=== PATIENT | female | born 1950 | race Caucasian/White ===

== ENCOUNTER 2017-01-27 09:47 | Emergency (ER) | payer MEDICARE, OTHER ==
[2017-01-27] MEDS ORDERED: Sodium Chloride 0.9% 1,000 ML IV SCH (10:00)
[2017-01-27 10:39] LABS: CHLORIDE,CL 104 mmol/L (98-107); SODIUM,NA 140 mmol/L (136-145)
--- NOTE | 2017-01-27 10:43 | EDM.PDOC ---
ED HPI GENERAL MEDICAL PROBLEM - General Chief Complaint: Neuro Symptoms/Deficits Stated Complaint: possible stroke/TIA Time Seen by Provider: 01/27/17 09:49 Source of Information: Reports: Patient, Family History Limitations: Reports: No Limitations - History of Present Illness INITIAL COMMENTS - FREE TEXT/NARRATIVE: Patient brought in via EMS with complaints of left sided weakness and dizziness. She also has nausea. Last known well time is 914. She has a history of migraine headaches, TIA with hospitalization, near syncope episodes. She denies any medications. Was at work when this happened. Denies chest pain, sob, headache, no abdominal pain, no urinary or bowel complaints. Does have urinary incontinence. Left sided weakness to both upper and lower extremities. Onset: Today, Sudden Location: Reports: Upper Extremity, Left, Lower Extremity, Left Severity: Mild Improves with: Reports: None Worsens with: Reports: None Associated Symptoms: Reports: Weakness (left side) - Related Data Allergies Allergy/AdvReac Type Severity Reaction Status Date / Time prochlorperazine Allergy Severe Cannot Verified 01/27/17 10:17 [From Compazine] Remember ciprofloxacin [From Cipro] Allergy Cannot Verified 02/12/16 04:26 Remember butorphanol [From Stadol] AdvReac Cannot Verified 01/27/17 10:17 Remember dipyridamole [From Aggrenox] AdvReac Cannot Verified 01/27/17 10:17 Remember Past Medical History Neurological History: Reports: Migraines ED ROS GENERAL - Review of Systems Review Of Systems: See Below Constitutional: Reports: Weakness HEENT: Reports: No Symptoms Respiratory: Reports: No Symptoms Cardiovascular: Reports: No Symptoms Endocrine: Reports: No Symptoms GI/Abdominal: Reports: No Symptoms, Nausea : Reports: No Symptoms Musculoskeletal: Reports: No Symptoms Skin: Reports: No Symptoms Neurological: Reports: Dizziness, Weakness (left sided arm/leg) Psychiatric: Reports: No Symptoms Hematologic/Lymphatic: Reports: No Symptoms Immunologic: Reports: No Symptoms ED EXAM, NEURO - Physical Exam Exam: See Below Exam Limited By: No Limitations General Appearance: Alert, WD/WN, No Apparent Distress Eye Exam: Bilateral Eye: EOMI, PERRL Ears: Normal TMs Throat/Mouth: Normal Inspection, Normal Oropharynx Head Exam: Atraumatic, Normocephalic Neck: Normal Inspection, Supple, Non-Tender Respiratory/Chest: No Respiratory Distress, Lungs Clear, Normal Breath Sounds, No Accessory Muscle Use, Chest Non-Tender Cardiovascular: Normal Peripheral Pulses, Regular Rate, Rhythm, No Edema GI/Abdominal: Normal Bowel Sounds, Soft, Non-Tender, No Organomegaly, No Distention Neurological: Alert, Normal Mood/Affect, Oriented x 3, Abnormal Finger to Nose ( finger to nose and heel to grant normal but left side is slower than right, reduced sensation to left side on pin prick), Abnormal Sensation, Abnormal Light Touch, Abnormal Pin Prick. No: Normal Dorsiflexion, Normal Plantar Flexion (dorsiflexion and plantar flexion weak to left side) Back Exam: Normal Inspection Extremities: Normal Inspection, Normal Range of Motion, Normal Capillary Refill Psychiatric: Normal Affect, Normal Mood Skin Exam: Warm, Dry, Intact, Normal Color Course - Orders/Labs/Meds Orders: Active Orders 24 hr Category Date Time Status EKG 12 Lead [EKG Documentation Completion] [RC] ROUTINE Care 01/27/17 09:53 Active Head wo Cont [CT] Stat Exams 01/27/17 09:51 Taken Sodium Chloride 0.9% [Normal Saline] 1,000 ml Med 01/27/17 10:00 Active IV ASDIRECTED Medication Orders Sodium Chloride (Normal Saline) 1,000 mls @ 100 mls/hr IV ASDIRECTED CESAR Labs: Laboratory Tests 01/27/17 01/27/17 01/27/17 Range/Units 10:03 10:03 10:03 WBC 6.1 (4.0-10.0) x10^3/uL RBC 4.17 (4.00-5.50) x10^6/uL Hgb 12.2 (12.0-16.0) g/dL Hct 36.7 (33.0-47.0) % MCV 88.0 (78.0-93.0) fL MCH 29.3 (26.0-32.0) pg MCHC 33.2 (32.0-36.0) g/dL RDW Coeff of Ibis 14.5 (10.0-15.0) % Plt Count 236 (130-400) x10^3/uL Neut % (Auto) 50.5 (50.0-80.0) % Lymph % (Auto) 35.1 (25.0-50.0) % [place] % (Auto) 11.3 H (2.0-11.0) % Eos % (Auto) 2.8 (0.0-4.0) % Baso % (Auto) 0.3 (0.2-1.2) % PT 9.7 L (9.8-11.8) SEC INR 0.9 L (2.0-3.5) Sodium 140 (136-145) mmol/L Potassium 3.9 (3.5-5.1) mmol/L Chloride 104 (98-107) mmol/L Carbon Dioxide 26 (21-32) mmol/L BUN 15 (7-18) mg/dL Creatinine 0.9 (0.55-1.02) mg/dL Est Cr Clr Drug Dosing TNP Estimated GFR (MDRD) > 60 Glucose 95 (74-106) mg/dL Calcium 8.8 (8.5-10.1) mg/dL Corrected Calcium 9.12 (8.5-10.1) mg/dL Total Bilirubin 0.8 (0.2-1.0) mg/dL AST 19 (15-37) U/L ALT 20 (14-59) U/L Alkaline Phosphatase 68 (46-116) U/L Creatine Kinase 122 (26-192) U/L Creatine Kinase Index 1.8 (0.0-4.0) % CK-MB (CK-2) 2.2 (0.0-3.6) ng/mL POC Troponin I (0.00-0.08) ng/mL Total Protein 7.0 (6.4-8.2) g/dL Albumin 3.6 (3.4-5.0) g/dL Globulin 3.4 Albumin/Globulin Ratio 1.06 // Range/Units 10:06 WBC (4.0-10.0) x10^3/uL RBC (4.00-5.50) x10^6/uL Hgb (12.0-16.0) g/dL Hct (33.0-47.0) % MCV (78.0-93.0) fL MCH (26.0-32.0) pg MCHC (32.0-36.0) g/dL RDW Coeff of Ibis (10.0-15.0) % Plt Count (130-400) x10^3/uL Neut % (Auto) (50.0-80.0) % Lymph % (Auto) (25.0-50.0) % [place] % (Auto) (2.0-11.0) % Eos % (Auto) (0.0-4.0) % Baso % (Auto) (0.2-1.2) % PT (9.8-11.8) SEC INR (2.0-3.5) Sodium (136-145) mmol/L Potassium (3.5-5.1) mmol/L Chloride (98-107) mmol/L Carbon Dioxide (21-32) mmol/L BUN (7-18) mg/dL Creatinine (0.55-1.02) mg/dL Est Cr Clr Drug Dosing Estimated GFR (MDRD) Glucose (74-106) mg/dL Calcium (8.5-10.1) mg/dL Corrected Calcium (8.5-10.1) mg/dL Total Bilirubin (0.2-1.0) mg/dL AST (15-37) U/L ALT (14-59) U/L Alkaline Phosphatase (46-116) U/L Creatine Kinase (26-192) U/L Creatine Kinase Index (0.0-4.0) % CK-MB (CK-2) (0.0-3.6) ng/mL POC Troponin I 0.00 (0.00-0.08) ng/mL Total Protein (6.4-8.2) g/dL Albumin (3.4-5.0) g/dL Globulin Albumin/Globulin Ratio Meds: Medications Generic Name Dose Route Start Last Admin Trade Name Freq PRN Reason Stop Dose Admin Sodium Chloride 1,000 mls @ 100 mls/hr 01/27/17 10:00 Normal Saline IV ASDIRECTED CESAR Discontinued Medications Generic Name Dose Route Start Last Admin Trade Name Freq PRN Reason Stop Dose Admin Alteplase, Recombinant 7.3 mg 01/27/17 11:11 Activase IVPUSH 01/27/17 11:12 .BOLUS ONE Alteplase, Recombinant 65.7 mg 01/27/17 11:11 Activase IV 01/27/17 11:12 .INFUSION ONE Departure - Departure Time of Disposition: 11:34 Disposition: DC/Tfer to Acute Hospital 02 Condition: Good Clinical Impression: Cerebrovascular accident (CVA) - Discharge Information Forms: ED Department Discharge, Interfacility Transfer [facility] ED Communication - Discussed Case With (1) Discussed Case With (1): Admitting Provider (Dr. Preciado, neurologist at [facility] did accept patient for admission, with recommendation to administer tPa.) Person/s Notified (1): zaire - Problem List & Annotations (1) Cerebrovascular accident (CVA) SNOMED Code(s): 321590098 Code(s): I63.9 - CEREBRAL INFARCTION, UNSPECIFIED Status: Acute Priority : Medium Current Visit: Yes Qualifiers: CVA mechanism: unspecified Qualified Code(s): I63.9 - Cerebral infarction, unspecified - Problem List Review Problem List Initiated/Reviewed/Updated: Yes - My Orders Last 24 Hours: My Active Orders 01/27/17 09:51 Head wo Cont [CT] Stat 01/27/17 09:53 EKG 12 Lead [EKG Documentation Completion] [RC] ROUTINE 01/27/17 10:00 Sodium Chloride 0.9% [Normal Saline] 1,000 ml IV ASDIRECTED - Assessment/Plan Last 24 Hours: My Active Orders 01/27/17 09:51 Head wo Cont [CT] Stat 01/27/17 09:53 EKG 12 Lead [EKG Documentation Completion] [RC] ROUTINE 01/27/17 10:00 Sodium Chloride 0.9% [Normal Saline] 1,000 ml IV ASDIRECTED Assessment:: right sided TIA Plan: Transfer to [facility]. Consultation with Dr. Preciado and decision made to administer tPa in route.
== END 2017-01-27 11:45 | disposition short-term general hospital (02) ==
LOC: VM.ED 09:47
DX: I63.9 Cerebral infarction, unspecified (principal); Z88.1 Allergy status to other antibiotic agents; Z88.8 Allergy status to other drugs, medicaments and biological substances
CPT/HCPCS: 36415; 70450; 80053; 82550; 82553; 84484; 85025; 85610; 96361; 96374; 99291; 99292; J2997; 99285-GF; J7030

== ENCOUNTER 2017-06-22 05:45 | Emergency (ER) | payer MEDICARE, OTHER ==
[2017-06-22] MEDS ORDERED: Sodium Chloride 0.9% 10 ML Syringe FLUSH PRN (06:11)
[2017-06-22] MEDS ORDERED: Ondansetron 4 MG/2 ML SDV IVPUSH ONE (06:14)
[2017-06-22] MEDS ORDERED: Lactated Ringers 1,000 ML IV SCH (06:15)
[2017-06-22] MEDS ORDERED: HYDROmorphone 1 MG/ML Syringe IVPUSH ONE ×2 (06:17→08:39)
[2017-06-22 06:50] LABS: CHLORIDE,CL 104 mmol/L (98-107); SODIUM,NA 141 mmol/L (136-145)
[2017-06-22] MEDS ORDERED: Metoclopramide 10 MG/2 ML SDV IVPUSH ONE (07:51)
[2017-06-22] MEDS ORDERED: metroNIDAZOLE 500 MG Tab PO ONE (08:38)
[2017-06-22] MEDS ORDERED: Sulfamethoxazole/Trimethoprim 800-160 MG Tab PO ONE (08:38)
--- NOTE | 2017-06-28 18:31 | EDM.PDOC ---
ED HPI GENERAL MEDICAL PROBLEM - General Chief Complaint: Abdominal Pain Stated Complaint: abdominal pain Time Seen by Provider: 06/22/17 06:03 Source of Information: Reports: Patient History Limitations: Reports: No Limitations - History of Present Illness INITIAL COMMENTS - FREE TEXT/NARRATIVE: Pt. presents to ER with complaints of L sided abdominal pain. Pt. states that she woke up with the discomfort. She denies any fever or chills. No chest pain or shortness of breath. No N/V/D. Pt. states that she has a problem with chronic constipation. She denies any blood in her stool. She is not experiencing any dysuria, hematuria, or frequency. Onset: Today, Sudden Location: Reports: Abdomen Quality: Reports: Burning, Throbbing Severity: Moderate Improves with: Reports: Rest Worsens with: Reports: Movement Associated Symptoms: Reports: Loss of Appetite, Nausea/Vomiting Upper Abdomen Pain Score (Numeric/FACES): 3 - Related Data Allergies Allergy/AdvReac Type Severity Reaction Status Date / Time prochlorperazine Allergy Severe Cannot Verified 06/22/17 05:47 [From Compazine] Remember ciprofloxacin [From Cipro] Allergy Cannot Verified 06/22/17 05:47 Remember butorphanol [From Stadol] AdvReac Cannot Verified 06/22/17 05:47 Remember dipyridamole [From Aggrenox] AdvReac Cannot Verified 06/22/17 05:47 Remember Home Meds: Home Meds Aspirin [Halfprin] 81 mg PO DAILY 06/22/17 [History] Past Medical History Neurological History: Reports: Migraines, TIA - Past Surgical History GI Surgical History: Reports: Appendectomy Female Surgical History: Reports: Hysterectomy Social & Family History - Tobacco Use Smoking Status *Q: Never Smoker ED ROS GENERAL - Review of Systems Review Of Systems: See Below Constitutional: Reports: No Symptoms HEENT: Reports: No Symptoms Respiratory: Reports: No Symptoms Cardiovascular: Reports: No Symptoms Endocrine: Reports: No Symptoms GI/Abdominal: Reports: Abdominal Pain, Constipation, Decreased Appetite : Reports: No Symptoms Musculoskeletal: Reports: No Symptoms Skin: Reports: No Symptoms Neurological: Reports: No Symptoms Psychiatric: Reports: No Symptoms Hematologic/Lymphatic: Reports: No Symptoms Immunologic: Reports: No Symptoms ED EXAM, GI/ABD - Physical Exam Exam: See Below Exam Limited By: No Limitations General Appearance: Alert, WD/WN, No Apparent Distress Eyes: Bilateral: EOMI Ears: Normal External Exam, Hearing Grossly Normal Nose: Normal Inspection, Normal Mucosa, No Blood Throat/Mouth: Normal Inspection, Normal Lips, Normal Teeth, Normal Gums, Normal Oropharynx, Normal Voice, No Airway Compromise Head: Atraumatic, Normocephalic Neck: Normal Inspection, Supple, Non-Tender, Full Range of Motion Respiratory/Chest: No Respiratory Distress, Lungs Clear, Normal Breath Sounds, No Accessory Muscle Use, Chest Non-Tender Cardiovascular: Normal Peripheral Pulses, Regular Rate, Rhythm, No Edema, No Gallop, No JVD, No Murmur, No Rub GI/Abdominal Exam: Normal Bowel Sounds, Soft, Non-Tender, No Organomegaly, No Distention, No Abnormal Bruit, No Mass (Female) Exam: Deferred Rectal (Female) Exam: Deferred Back Exam: Normal Inspection, Full Range of Motion. No: CVA Tenderness (L), CVA Tenderness (R) Extremities: Normal Inspection, Normal Range of Motion, Non-Tender, No Pedal Edema, Normal Capillary Refill Neurological: Alert, Oriented, CN II-XII Intact, Normal Cognition, No Motor/ Sensory Deficits Psychiatric: Normal Affect, Normal Mood Skin Exam: Warm, Dry, Intact, Normal Color Lymphatic: No Adenopathy Course - Vital Signs Last Recorded V/S: Last Vital Signs Temp 36.4 C 06/22/17 05:49 Pulse 75 06/22/17 05:49 Resp 20 06/22/17 05:49 BP 169/85 H 06/22/17 05:49 Pulse Ox 100 06/22/17 05:49 - Orders/Labs/Meds Labs: Laboratory Tests 06/22/17 06/22/17 06/22/17 Range/Units 06:14 06:22 06:22 WBC 6.3 (4.0-10.0) x10^3/uL RBC 4.60 (4.00-5.50) x10^6/uL Hgb 13.7 D (12.0-16.0) g/dL Hct 41.4 (33.0-47.0) % MCV 90.0 (78.0-93.0) fL MCH 29.8 (26.0-32.0) pg MCHC 33.1 (32.0-36.0) g/dL RDW Coeff of Ibis 14.1 (10.0-15.0) % Plt Count 263 (130-400) x10^3/uL Neut % (Auto) 66.4 (50.0-80.0) % Lymph % (Auto) 21.6 L (25.0-50.0) % [place] % (Auto) 9.9 (2.0-11.0) % Eos % (Auto) 1.6 (0.0-4.0) % Baso % (Auto) 0.5 (0.2-1.2) % PT 9.9 (9.8-11.8) SEC INR 0.9 L (2.0-3.5) Sodium (136-145) mmol/L Potassium (3.5-5.1) mmol/L Chloride (98-107) mmol/L Carbon Dioxide (21-32) mmol/L BUN (7-18) mg/dL Creatinine (0.55-1.02) mg/dL Est Cr Clr Drug Dosing mL/min Estimated GFR (MDRD) Glucose (74-106) mg/dL Lactic Acid (0.4-2.0) mmol/L Calcium (8.5-10.1) mg/dL Corrected Calcium (8.5-10.1) mg/dL Total Bilirubin (0.2-1.0) mg/dL AST (15-37) U/L ALT (14-59) U/L Alkaline Phosphatase (46-116) U/L C-Reactive Protein (<=0.9) mg/dL Total Protein (6.4-8.2) g/dL Albumin (3.4-5.0) g/dL Globulin Albumin/Globulin Ratio Urine Color Yellow (YELLOW) Urine Appearance Clear (CLEAR) Urine pH 8.5 H (5.0-8.0) Ur Specific [place] 1.015 Urine Protein Negative (NEGATIVE) mg/dL Urine Glucose (UA) Negative (NEGATIVE) mg/dL Urine Ketones Negative (NEGATIVE) mg/dL Urine Occult Blood Trace-intact H (NEGATIVE) Urine Nitrite Negative (NEGATIVE) Urine Bilirubin Negative (NEGATIVE) Urine Urobilinogen 0.2 (0.2) EU/dL Ur Leukocyte Esterase Negative (NEGATIVE) Urine RBC 5-10 H (NOT SEEN) /HPF Urine WBC 0-5 (NOT SEEN) /HPF Ur Squamous Epith Cells Rare (NEGATIVE) /HPF Urine Bacteria Rare (NEGATIVE) /HPF Urine Mucus Rare H (NEGATIVE) /LPF 06/22/17 06/22/17 Range/Units 06:22 06:22 WBC (4.0-10.0) x10^3/uL RBC (4.00-5.50) x10^6/uL Hgb (12.0-16.0) g/dL Hct (33.0-47.0) % MCV (78.0-93.0) fL MCH (26.0-32.0) pg MCHC (32.0-36.0) g/dL RDW Coeff of Ibis (10.0-15.0) % Plt Count (130-400) x10^3/uL Neut % (Auto) (50.0-80.0) % Lymph % (Auto) (25.0-50.0) % [place] % (Auto) (2.0-11.0) % Eos % (Auto) (0.0-4.0) % Baso % (Auto) (0.2-1.2) % PT (9.8-11.8) SEC INR (2.0-3.5) Sodium 141 (136-145) mmol/L Potassium 4.5 (3.5-5.1) mmol/L Chloride 104 (98-107) mmol/L Carbon Dioxide 29 (21-32) mmol/L BUN 17 (7-18) mg/dL Creatinine 1.1 H (0.55-1.02) mg/dL Est Cr Clr Drug Dosing 42.27 mL/min Estimated GFR (MDRD) 49 Glucose 94 (74-106) mg/dL Lactic Acid 0.9 (0.4-2.0) mmol/L Calcium 9.7 (8.5-10.1) mg/dL Corrected Calcium 9.86 (8.5-10.1) mg/dL Total Bilirubin 0.8 (0.2-1.0) mg/dL AST 18 (15-37) U/L ALT 27 (14-59) U/L Alkaline Phosphatase 74 (46-116) U/L C-Reactive Protein < 0.2 (<=0.9) mg/dL Total Protein 7.4 (6.4-8.2) g/dL Albumin 3.8 (3.4-5.0) g/dL Globulin 3.6 Albumin/Globulin Ratio 1.06 Urine Color (YELLOW) Urine Appearance (CLEAR) Urine pH (5.0-8.0) Ur Specific [place] Urine Protein (NEGATIVE) mg/dL Urine Glucose (UA) (NEGATIVE) mg/dL Urine Ketones (NEGATIVE) mg/dL Urine Occult Blood (NEGATIVE) Urine Nitrite (NEGATIVE) Urine Bilirubin (NEGATIVE) Urine Urobilinogen (0.2) EU/dL Ur Leukocyte Esterase (NEGATIVE) Urine RBC (NOT SEEN) /HPF Urine WBC (NOT SEEN) /HPF Ur Squamous Epith Cells (NEGATIVE) /HPF Urine Bacteria (NEGATIVE) /HPF Urine Mucus (NEGATIVE) /LPF Meds: Medications Discontinued Medications Generic Name Dose Route Start Last Admin Trade Name Freq PRN Reason Stop Dose Admin Hydromorphone HCl 1 mg 06/22/17 06:17 06/22/17 06:30 Dilaudid IVPUSH 06/22/17 06:18 1 mg ONETIME ONE Administration Hydromorphone HCl 1 mg 06/22/17 08:39 06/22/17 08:45 Dilaudid IVPUSH 06/22/17 08:40 1 mg ONETIME ONE Administration Lactated Ringer's 1,000 mls @ 500 mls/hr 06/22/17 06:15 06/22/17 06:25 Ringers, Lactated IV 500 mls/hr ASDIRECTED CESAR Administration Metoclopramide HCl 10 mg 06/22/17 07:51 06/22/17 07:54 Reglan IVPUSH 06/22/17 07:52 10 mg ONETIME ONE Administration Metronidazole 500 mg 06/22/17 08:38 06/22/17 08:45 Flagyl PO 06/22/17 08:39 500 mg ONETIME ONE Administration Ondansetron HCl 4 mg 06/22/17 06:14 06/22/17 06:29 Zofran IVPUSH 06/22/17 06:15 4 mg ONETIME ONE Administration Sodium Chloride 10 ml 06/22/17 06:11 06/22/17 06:29 Saline Flush FLUSH 10 ml ASDIRECTED PRN Administration Keep Vein Open Trimethoprim/Sulfamethoxazole 1 tab 06/22/17 08:38 06/22/17 08:45 Septra Ds PO 06/22/17 08:39 1 tab ONETIME ONE Administration - Radiology Interpretation Free Text/Narrative:: CT did not reveal any obvious diverticulitis. There was diverticulosis, but colon was not completely visualized at splenic flexure. No free fluid or inflammation noted. Departure - Departure Time of Disposition: 05:49 Disposition: Home, Self-Care 01 Clinical Impression: Abdominal pain, Diverticulitis - Discharge Information Instructions: Diverticulitis Referrals: PCP,Unobtain [Primary Care Provider] - Forms: ED Department Discharge Additional Instructions: Home to rest. Flagyl 500mg three times daily for 10 days. Bactrim DS 1 twice daily for 10 days. Drink plenty of water. Follow-up in clinic in 10-14 days.
== END 2017-06-22 09:00 | disposition home or self-care (01) ==
LOC: VM.ED 05:45
DX: K57.92 Diverticulitis of intestine, part unspecified, without perforation or abscess without bleeding (principal); Z88.1 Allergy status to other antibiotic agents; Z88.8 Allergy status to other drugs, medicaments and biological substances; Z79.82 Long term (current) use of aspirin; Z90.710 Acquired absence of both cervix and uterus
CPT/HCPCS: 36415; 74177; 80053; 81001; 83605; 85025; 85610; 86140; 96361; 96374; 96375; 96376; 99283-GF; 99284; A9270-GY; J1170; J2405; J2765; J7050; J7120

== ENCOUNTER 2018-07-20 18:20 | Emergency (ER) | payer MEDICARE, OTHER ==
[2018-07-20] MEDS ORDERED: Sodium Chloride 0.9% 10 ML Syringe FLUSH PRN (18:44)
[2018-07-20] MEDS ORDERED: Nitroglycerin 0.4 MG Tab.SL SL ONE ×2 (18:46→19:49)
--- NOTE | 2018-07-20 19:30 | EDM.PDOC ---
ED HPI GENERAL MEDICAL PROBLEM - General Chief Complaint: Chest Pain Time Seen by Provider: 07/20/18 18:32 Source of Information: Reports: Patient History Limitations: Reports: No Limitations - History of Present Illness INITIAL COMMENTS - FREE TEXT/NARRATIVE: Pt. presents to ER with complaints of chest pain. Seen in clinic for the same. CPK and Trop I were drawn, and the CPK was 195 (normal was 192). States that the discomfort radiates into her back. No arm pain. No diaphoresis. No nausea or vomiting. Denies any shortness of breath. EKG did not show any acute ST or T wave abnormality. She is a non-smoker. Denies any history of HTN or dyslipidemia. She has had a prior TIA. She has had an angiogram at [facility] within the past 8-10 years which was negative. Onset Date: 07/19/18 Location: Reports: Chest Quality: Reports: Pressure Severity: Moderate Middle Chest Pain Score (Numeric/FACES): 5 - Related Data Allergies Allergy/AdvReac Type Severity Reaction Status Date / Time prochlorperazine Allergy Severe Cannot Verified 07/20/18 18:37 [From Compazine] Remember ciprofloxacin [From Cipro] Allergy Cannot Verified 07/20/18 18:37 Remember meperidine [From Demerol] Allergy Nausea and Verified 07/20/18 19:33 Vomiting butorphanol [From Stadol] AdvReac Cannot Verified 07/20/18 18:37 Remember dipyridamole [From Aggrenox] AdvReac Cannot Verified 07/20/18 18:37 Remember Home Meds: Home Meds Aspirin [Halfprin] 81 mg PO DAILY 06/22/17 [History] Polyethylene Glycol 3350 [MiraLAX] 17 gm PO DAILY 07/20/18 [History] Past Medical History Neurological History: Reports: Migraines, TIA - Past Surgical History Other Cardiovascular Surgeries/Procedures: angiogram 10 years ago GI Surgical History: Reports: Appendectomy Female Surgical History: Reports: Hysterectomy Social & Family History - Tobacco Use Smoking Status *Q: Unknown Ever Smoked ED ROS GENERAL - Review of Systems Review Of Systems: See Below Constitutional: Reports: No Symptoms HEENT: Reports: No Symptoms Respiratory: Reports: No Symptoms Cardiovascular: Reports: Chest Pain Endocrine: Reports: No Symptoms GI/Abdominal: Reports: No Symptoms : Reports: No Symptoms Musculoskeletal: Reports: No Symptoms Skin: Reports: No Symptoms Neurological: Reports: No Symptoms Psychiatric: Reports: No Symptoms Hematologic/Lymphatic: Reports: No Symptoms Immunologic: Reports: No Symptoms ED EXAM, GENERAL - Physical Exam Exam: See Below Exam Limited By: No Limitations General Appearance: Alert, WD/WN, No Apparent Distress Eye Exam: Bilateral Eye: EOMI, PERRL Ears: Normal External Exam, Normal Canal, Hearing Grossly Normal, Normal TMs Ear Exam: Bilateral Ear: Auricle Normal, Canal Normal, TM normal Throat/Mouth: Normal Inspection, Normal Lips, Normal Teeth, Normal Gums, Normal Oropharynx, Normal Voice, No Airway Compromise Head: Atraumatic, Normocephalic Neck: Normal Inspection, Supple, Non-Tender, Full Range of Motion Respiratory/Chest: No Respiratory Distress, Lungs Clear, Normal Breath Sounds, No Accessory Muscle Use, Chest Non-Tender Cardiovascular: Normal Peripheral Pulses, Regular Rate, Rhythm, No Edema, No Gallop, No JVD, No Murmur, No Rub GI/Abdominal: Normal Bowel Sounds, Soft, Non-Tender, No Organomegaly, No Distention, No Abnormal Bruit, No Mass (Female) Exam: Deferred Rectal (Female) Exam: Deferred Back Exam: Normal Inspection, Full Range of Motion, NT Extremities: Normal Inspection, Normal Range of Motion, Non-Tender, Normal Capillary Refill, No Pedal Edema Neurological: Alert, Oriented, CN II-XII Intact, Normal Cognition, Normal Gait, Normal Reflexes, No Motor/Sensory Deficits Psychiatric: Normal Affect, Normal Mood Skin Exam: Warm, Dry, Intact, Normal Color, No Rash EKG INTERPRETATION Rhythm: NSR [place]: Normal P-Wave: Present QRS: Normal ST-T: Normal QT: Normal Course - Vital Signs Last Recorded V/S: Last Vital Signs Temp 36.5 C 07/20/18 18:25 Pulse 70 07/20/18 19:13 Resp 16 07/20/18 18:25 BP 164/75 H 07/20/18 19:51 Pulse Ox 99 07/20/18 18:25 - Orders/Labs/Meds Orders: Active Orders 24 hr Category Date Time Status EKG Documentation Completion [RC] STAT Care 07/20/18 18:44 Active Chest 2V [CR] Stat Exams 07/20/18 19:34 Taken Heparin Sodium/0.45% NaCl [Heparin 25,000 Units in 2 Med 07/20/18 20:00 Active NS 500 ML] 25,000 units in 500 ml IV TITRATE Sodium Chloride 0.9% [Saline Flush] Med 07/20/18 18:44 Active 10 ml FLUSH ASDIRECTED PRN Peripheral IV Insertion Adult [OM.PC] Routine Oth 07/20/18 18:44 Ordered Medication Orders Heparin Sodium/Sodium Chloride (Heparin 25,000 Units In 1/2 Ns 500 Ml) 25,000 units in 500 mls @ 20 mls/hr IV TITRATE CESAR; Protocol Sodium Chloride (Saline Flush) 10 ml FLUSH ASDIRECTED PRN PRN Reason: Keep Vein Open Labs: Laboratory Tests 07/20/18 07/20/18 07/20/18 Range/Units 18:57 18:57 18:57 WBC 4.5 (4.0-10.0) x10^3/uL RBC 4.04 (4.00-5.50) x10^6/uL Hgb 11.9 L D (12.0-16.0) g/dL Hct 37.0 (33.0-47.0) % MCV 91.6 (78.0-93.0) fL MCH 29.5 (26.0-32.0) pg MCHC 32.2 (32.0-36.0) g/dL RDW Coeff of Ibis 14.3 (10.0-15.0) % Plt Count 223 (130-400) x10^3/uL Neut % (Auto) 49.8 L (50.0-80.0) % Lymph % (Auto) 35.9 (25.0-50.0) % [place] % (Auto) 10.6 (2.0-11.0) % Eos % (Auto) 3.3 (0.0-4.0) % Baso % (Auto) 0.4 (0.2-1.2) % PT 9.8 (9.6-11.4) SEC INR 0.9 L (2.0-3.5) Sodium 141 (136-145) mmol/L Potassium 4.1 (3.5-5.1) mmol/L Chloride 105 (98-107) mmol/L Carbon Dioxide 29 (21-32) mmol/L Anion Gap 11.1 (10-20) mmol/L BUN 19 H (7-18) mg/dL Creatinine 0.8 (0.55-1.02) mg/dL Est Cr Clr Drug Dosing TNP Estimated GFR (MDRD) > 60 Glucose 90 (74-106) mg/dL Calcium 9.0 (8.5-10.1) mg/dL Corrected Calcium 9.56 (8.5-10.1) mg/dL Phosphorus 3.6 (2.6-4.7) mg/dL Magnesium 1.9 (1.8-2.4) mg/dL Total Bilirubin 0.6 (0.2-1.0) mg/dL AST 21 (15-37) U/L ALT 26 (14-59) U/L Alkaline Phosphatase 73 (46-116) U/L POC Troponin I (0.00-0.08) ng/mL NT-Pro-B Natriuret Pep 209 H (<=125) pg/mL Total Protein 6.8 (6.4-8.2) g/dL Albumin 3.3 L (3.4-5.0) g/dL Globulin 3.5 Albumin/Globulin Ratio 0.94 07/20/18 Range/Units 19:04 WBC (4.0-10.0) x10^3/uL RBC (4.00-5.50) x10^6/uL Hgb (12.0-16.0) g/dL Hct (33.0-47.0) % MCV (78.0-93.0) fL MCH (26.0-32.0) pg MCHC (32.0-36.0) g/dL RDW Coeff of Ibis (10.0-15.0) % Plt Count (130-400) x10^3/uL Neut % (Auto) (50.0-80.0) % Lymph % (Auto) (25.0-50.0) % [place] % (Auto) (2.0-11.0) % Eos % (Auto) (0.0-4.0) % Baso % (Auto) (0.2-1.2) % PT (9.6-11.4) SEC INR (2.0-3.5) Sodium (136-145) mmol/L Potassium (3.5-5.1) mmol/L Chloride (98-107) mmol/L Carbon Dioxide (21-32) mmol/L Anion Gap (10-20) mmol/L BUN (7-18) mg/dL Creatinine (0.55-1.02) mg/dL Est Cr Clr Drug Dosing Estimated GFR (MDRD) Glucose (74-106) mg/dL Calcium (8.5-10.1) mg/dL Corrected Calcium (8.5-10.1) mg/dL Phosphorus (2.6-4.7) mg/dL Magnesium (1.8-2.4) mg/dL Total Bilirubin (0.2-1.0) mg/dL AST (15-37) U/L ALT (14-59) U/L Alkaline Phosphatase (46-116) U/L POC Troponin I 0.00 (0.00-0.08) ng/mL NT-Pro-B Natriuret Pep (<=125) pg/mL Total Protein (6.4-8.2) g/dL Albumin (3.4-5.0) g/dL Globulin Albumin/Globulin Ratio Meds: Medications Generic Name Dose Route Start Last Admin Trade Name Frechance PRN Reason Stop Dose Admin Heparin Sodium/Sodium Chloride 25,000 units in 500 mls @ 20 mls/hr 07/20/18 20 :00 Heparin 25,000 Units In 1/2 Ns 500 Ml IV TITRATE CESAR Protocol Sodium Chloride 10 ml 07/20/18 18:44 Saline Flush FLUSH ASDIRECTED PRN Keep Vein Open Discontinued Medications Generic Name Dose Route Start Last Admin Trade Name Kaitlin PRN Reason Stop Dose Admin Heparin Sodium (Porcine) 4,000 units 07/20/18 19:59 07/20/18 20:05 Heparin Sodium IVPUSH 07/20/18 20:00 4,000 units .BOLUS ONE Administration Heparin Sodium/Sodium Chloride Confirm 07/20/18 20:17 Heparin 25,000 Units In 1/2 Ns 500 Ml Administered 07/20/18 20:18 Dose 500 mls @ as directed .ROUTE .STK-MED ONE Nitroglycerin 0.4 mg 07/20/18 18:46 07/20/18 19:06 Nitrostat SL 07/20/18 18:47 0.4 mg ONETIME ONE Administration Nitroglycerin 0.4 mg 07/20/18 19:49 07/20/18 19:51 Nitrostat SL 07/20/18 19:50 0.4 mg ONETIME ONE Administration Departure - Departure Time of Disposition: 20:23 Disposition: DC/Tfer to Acute Hospital 02 Clinical Impression: Unstable angina - Discharge Information Referrals: Nilda Wilson, [employer]INEER [Primary Care Provider] - Forms: ED Department Discharge, Interfacility Transfer EMTALA - Problem List Review Problem List Initiated/Reviewed/Updated: Yes - My Orders Last 24 Hours: My Active Orders 07/20/18 18:44 EKG Documentation Completion [RC] STAT Sodium Chloride 0.9% [Saline Flush] 10 ml FLUSH ASDIRECTED PRN Peripheral IV Insertion Adult [OM.PC] Routine 07/20/18 19:34 Chest 2V [CR] Stat 07/20/18 20:00 Heparin Sodium/0.45% NaCl [Heparin 25,000 Units in 1/2 NS 500 ML] 25,000 units in 500 ml IV TITRATE - Assessment/Plan Last 24 Hours: My Active Orders 07/20/18 18:44 EKG Documentation Completion [RC] STAT Sodium Chloride 0.9% [Saline Flush] 10 ml FLUSH ASDIRECTED PRN Peripheral IV Insertion Adult [OM.PC] Routine 07/20/18 19:34 Chest 2V [CR] Stat 07/20/18 20:00 Heparin Sodium/0.45% NaCl [Heparin 25,000 Units in 1/2 NS 500 ML] 25,000 units in 500 ml IV TITRATE Plan: Chest pain improved with nitro. She was heparinized with a 4000u bolus and a 1000u/hr drip. [facility] was contacted. Pt. will be transferred there for her unstable angina. Dr. Bermeo is accepting. Will be transported via [facility] ground ambulance. She is a code 1.
[2018-07-20 19:36] LABS: CHLORIDE,CL 105 mmol/L (98-107); SODIUM,NA 141 mmol/L (136-145)
[2018-07-20 19:37] LABS: ANION GAP 11.1 mmol/L (10-20)
[2018-07-20] MEDS ORDERED: Heparin Sodium 5,000 Units/ML Vial IVPUSH ONE (19:59)
[2018-07-20] MEDS ORDERED: Heparin Sodium/0.45% NaCl 25,000 UNITS/500 ML BAG IV SCH (20:00)
[2018-07-20] MEDS ORDERED: Heparin Sodium/0.45% NaCl 500 ML ONE (20:17)
--- NOTE | 2018-07-20 22:48 | CR ---
[id number] RAD/RAD Chest PA And Lateral EXAM: FRONTAL AND LATERAL VIEWS OF THE CHEST INDICATION: Chest pain. COMPARISON: February 11, 2016. DISCUSSION: The lungs are mildly hyperinflated, but clear. Borderline heart size without evidence of congestive heart failure. IMPRESSION: 1. No acute findings. James Mason MD 07/20/18 2246 Thank you for allowing us to participate in the care of your patient.
== END 2018-07-20 20:44 | disposition short-term general hospital (02) ==
LOC: VM.ED 18:20
DX: I20.0 Unstable angina (principal); Z79.899 Other long term (current) drug therapy; Z79.82 Long term (current) use of aspirin; Z88.8 Allergy status to other drugs, medicaments and biological substances; Z88.5 Allergy status to narcotic agent
CPT/HCPCS: 36415; 71046; 80053; 83735; 83880; 84100; 84484; 85025; 85610; 93005; 96365; 96375; 99285; A9270; J1644

== ENCOUNTER 2019-12-27 06:44 | Emergency (ER) | payer OTHER, MEDICARE ==
[2019-12-27] MEDS ORDERED: Lidocaine 1% 30 ML SDV INJECT ONE (07:11)
--- NOTE | 2019-12-27 07:41 | EDM.PDOC ---
ED HPI GENERAL MEDICAL PROBLEM - General Stated Complaint: FALL Time Seen by Provider: 12/27/19 07:05 Source of Information: Reports: Patient History Limitations: Reports: No Limitations - History of Present Illness INITIAL COMMENTS - FREE TEXT/NARRATIVE: Patient comes emergency department today from work after a fall. This patient was at work this morning when she tripped over a fan falling forward striking her face on the concrete floor. She did not get knocked out. She has no head neck or back pain. She has no visual disturbances. She complains of a laceration to her nose. She also complains of pain on her chin. She has no difficulty breathing or swallowing. She denies any loss of consciousness. She is not on any blood thinners. She denies any other injury other than to her nose and her chin. No visual disturbances. Face/Facial Pain Score (Numeric/FACES): 10 - Related Data Allergies Allergy/AdvReac Type Severity Reaction Status Date / Time prochlorperazine Allergy Severe Cannot Verified 12/27/19 07:10 [From Compazine] Remember ciprofloxacin [From Cipro] Allergy Cannot Verified 12/27/19 07:10 Remember meperidine [From Demerol] Allergy Nausea and Verified 12/27/19 07:10 Vomiting butorphanol [From Stadol] AdvReac Cannot Verified 12/27/19 07:10 Remember dipyridamole [From Aggrenox] AdvReac Cannot Verified 12/27/19 07:10 Remember Home Meds: Home Meds polyethylene glycoL 3350 [MiraLAX] 17 gm PO DAILY 07/20/18 [History] Amoxicillin/Potassium Clav [Augmentin 875-125 Tablet] 1 each PO BID #10 tablet 12/27/19 [Rx] L.acidoph,Paracasei, B.lactis [Probiotic] 1 each PO DAILY 12/27/19 [History] Past Medical History Neurological History: Reports: Migraines, TIA - Past Surgical History Other Cardiovascular Surgeries/Procedures: angiogram 10 years ago GI Surgical History: Reports: Appendectomy Female Surgical History: Reports: Hysterectomy ED ROS GENERAL - Review of Systems Review Of Systems: Comprehensive ROS is negative, except as noted in HPI. ED EXAM, SKIN/RASH Exam: See Below Exam Limited By: No Limitations General Appearance: Alert, WD/WN, No Apparent Distress Eye Exam: Bilateral Eye: EOMI, PERRL Ears: Normal External Exam, Normal Canal Nose: Normal Inspection, Normal Mucosa Throat/Mouth: Normal Inspection, Normal Lips, Normal Teeth, Normal Gums, Normal Oropharynx, Normal Voice, No Airway Compromise Head: Normocephalic, Facial Swelling (She has swelling right over the midpoint of the chin on the anterior aspect. There is no overt bony deformity.), Facial Tenderness (There is a linear laceration proximal to distal on the bridge of the nose approximately 1 cm in length that extends into the subcutaneous tissue. There is also bruising and deformity of the nasal bones to the right minimally. The rest of the face is atraumatic.). No: Sinus Tenderness Neck: Normal Inspection, Supple, Non-Tender. No: Tender Lateral, Tender Midline Respiratory/Chest: No Respiratory Distress, Lungs Clear, Normal Breath Sounds, No Accessory Muscle Use, Chest Non-Tender Cardiovascular: Normal Peripheral Pulses, Regular Rate, Rhythm Extremities: Normal Inspection, Normal Range of Motion, No Pedal Edema, Normal Capillary Refill Neurological: Alert, Oriented, CN II-XII Intact, Normal Cognition, No Motor/Sensory Deficits Psychiatric: Normal Affect, Normal Mood Skin: Warm, Dry, Intact, Normal Color, No Rash ED SKIN PROCEDURES - Laceration/Wound Repair Middle Nose Appearance: Subcutaneous, Linear, Clean Distal NVT: Neuro & Vascular Intact Anesthetic Type: Local Local Anesthesia - Lidocaine (Xylocaine): 1% Plain Local Anesthetic Volume: 3cc Skin Prep: Chlorhexidine (Hibiciens), Providone-Iodine (Betadine) Exploration/Debridement/Repair: Wound Explored, In a Bloodless Field, Explored to Base, Multiple Flaps Aligned Closed with: Sutures Lac/Wound length In cm: 1 Suture Size: 6-0 # of Sutures: 3 Suture Type: Nylon Sterile Dressing Applied: Nurse Tetanus Status Addressed: Yes Complications: No Course - Vital Signs Last Recorded V/S: Last Vital Signs Temp 98.7 F 12/27/19 07:00 Pulse 70 12/27/19 07:00 Resp 16 12/27/19 07:00 BP 160/92 H 12/27/19 07:00 Pulse Ox 98 12/27/19 07:00 - Orders/Labs/Meds Meds: Medications Discontinued Medications Generic Name Dose Route Start Last Admin Trade Name Freq PRN Reason Stop Dose Admin Lidocaine HCl 30 ml 12/27/19 07:11 12/27/19 07:19 Xylocaine-Mpf 1% INJECT 12/27/19 07:12 30 ml ONETIME ONE Administration - Radiology Interpretation Free Text/Narrative:: CT facial bones per radiology shows 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 - Re-Assessments/Exams Free Text/Narrative Re-Assessment/Exam: 12/27/19 17:49 Patient's tetanus was verified is up-to-date. The laceration of the nose does extend into the nasal cavity although there is no disruption of the cartilage in the inner aspect of the nose. She does have a minimally deviated septum to the left and this does not appear to be traumatic. There is no active bleeding. Please see the procedure note for laceration repair. As this is into the nasal cavity risk for infection is increased. We will put her on Augmentin 1 tablet p.o. twice daily for the next 5 days for prophylactic antibiotics. Discharge instructions as below are explained to the patient she was comfortable with this plan and her questions are answered. Departure - Departure Time of Disposition: 08:30 Disposition: Home, Self-Care 01 Clinical Impression: Nasal bones, open fracture Qualifiers: Encounter type: initial encounter Qualified Code(s): S02.2XXB - Fracture of nasal bones, initial encounter for open fracture Contusion of jawline Qualifiers: Encounter type: initial encounter Qualified Code(s): S00.83XA - Contusion of other part of head, initial encounter - Discharge Information Prescriptions: Amoxicillin/Potassium Clav [Augmentin 875-125 Tablet] 1 each PO BID #10 tablet Instructions: Amoxicillin; Clavulanic Acid tablets, How to Use Cold Therapy, [id number], Nasal Fracture, [id number], Jaw Contusion, [id number], Probiotics Referrals: Nilda Wilson B[employer] [Primary Care Provider] - Forms: ED Department Discharge Additional Instructions: Tylenol and or Ibuprofen as needed for pain. Ice to the sore areas especially the nose. See discharge instruction sheet. Watch for signs of infection. Cleanse the laceration twice daily with soap and water. Bacitracin and bandage until healed. Augmentin for prophylactic due to the area of injury. 1 tablet twice daily for the next 5 days. RX sent to pharmacy. Sutures out in 5 days. Return to the ED if new or worsening symptoms. Sepsis Event Note (ED) - Focused Exam Vital Signs: Vital Signs Temp Pulse Resp BP Pulse Ox 12/27/19 07:00 98.7 F 70 16 160/92 H 98
--- NOTE | 2019-12-27 08:23 | CT ---
[id number] CT/CT Facial Bones WO IV EXAM: CT FACIAL BONES. INDICATION: FALL, FACIAL TRAUMA. COMPARISON: None. 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 The nasal septum is deviated to the left. No other facial bone fractures are identified. The paranasal sinuses and mastoid air cells are normally aerated. The orbits and facial soft tissues are unremarkable. IMPRESSION: 1. 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 Rodolfo Coe DO 12/27/19 0869 Thank you for allowing us to participate in the care of your patient.
== END 2019-12-27 08:50 | disposition home or self-care (01) ==
LOC: VM.ED 06:44
DX: S02.2XXB Fracture of nasal bones, initial encounter for open fracture (principal); S00.83XA Contusion of other part of head, initial encounter; Z86.73 Personal history of transient ischemic attack (TIA), and cerebral infarction without residual deficits; Z90.710 Acquired absence of both cervix and uterus; Z90.49 Acquired absence of other specified parts of digestive tract; Z88.1 Allergy status to other antibiotic agents; Z88.8 Allergy status to other drugs, medicaments and biological substances; Z79.899 Other long term (current) drug therapy; W01.10XA Fall on same level from slipping, tripping and stumbling with subsequent striking against unspecified object, initial encounter; Y92.89 Other specified places as the place of occurrence of the external cause; Y99.0 Civilian activity done for income or pay
CPT/HCPCS: 12011; 70486; 99283-25; 99283-GF; J2001

== ENCOUNTER 2023-02-17 09:39 | Emergency (ER) | payer MEDICARE, OTHER ==
[2023-02-17 10:44] LABS: CORONAVIRUS COVID-19 NAA POSITIVE (NEGATIVE); INFLUENZA A NAA NEGATIVE (NEGATIVE); INFLUENZA B NAA NEGATIVE (NEGATIVE)
[2023-02-17] MEDS: Ondansetron 4 MG Tab.DIS PO ONE (11:04)
[2023-02-17 11:16] LABS: BASOPHILS PERCENT AUTO 0.2 % (0.2-1.2); EOSINOPHILS PERCENT AUTO 0.3 % (0.0-4.0); HEMATOCRIT 38.7 % (33.0-47.0); HEMOGLOBIN 12.7 g/dL (12.0-16.0); IMMATURE GRAN ABSOLUTE AUTO 0.02 x10^3/uL (0.00-0.07); LYMPHOCYTES ABSOLUTE AUTO 1.3 x10^3/uL (1.0-4.8); LYMPHOCYTES PERCENT AUTO 22.1 % (25.0-50.0); MEAN CORPUSCULAR HEMOGLOBIN 28.7 pg (26.0-32.0); MEAN CORPUSCULAR HGB CONC 32.8 g/dL (32.0-36.0); MEAN CORPUSCULAR VOLUME 87.4 fL (78.0-93.0); MONOCYTES ABSOLUTE AUTO 0.7 x10^3/uL (0.0-0.8); MONOCYTES PERCENT AUTO 11.1 % (2.0-11.0); PLATELET COUNT,PLT 297 x10^3/uL (130-400); RED BLOOD CELL COUNT 4.43 x10^6/uL (4.00-5.50); WHITE BLOOD CELL COUNT,WBC 6.1 x10^3/uL (4.0-10.0)
[2023-02-17 11:31] LABS: A/G RATIO 0.94; ALBUMIN 3.4 g/dL (3.4-5.0); ANION GAP 10.5 mmol/L (5-15); BILIRUBIN TOTAL 0.7 mg/dL (0.2-1.0); CALCIUM 9.1 mg/dL (8.5-10.1); CREATININE 1.1 mg/dL (0.55-1.02); EST CRCL DRUG DOSING (CG) 37.12 mL/min; POTASSIUM,K 4.5 mmol/L (3.5-5.1)
== END 2023-02-17 11:40 | disposition home or self-care (01) ==
LOC: VM.ED 09:39
DX: U07.1 COVID-19 (principal); I10 Essential (primary) hypertension; Z86.73 Personal history of transient ischemic attack (TIA), and cerebral infarction without residual deficits; Z79.82 Long term (current) use of aspirin; Z79.899 Other long term (current) drug therapy; Z88.8 Allergy status to other drugs, medicaments and biological substances; Z88.1 Allergy status to other antibiotic agents
CPT/HCPCS: 0240U; 36415; 71045; 80053; 85025; 99283; 99284; A9270

== ENCOUNTER 2024-04-01 10:24 | Emergency (ER) | payer MEDICARE, OTHER ==
[2024-04-01] MEDS ORDERED: Sodium Chloride 0.9% 10 ML Syringe FLUSH PRN (10:39)
[2024-04-01 10:47] LABS: BASOPHILS PERCENT AUTO 0.3 % (0.2-1.2); EOSINOPHILS ABSOLUTE AUTO 0.1 x10^3/uL (0.0-0.5); HEMATOCRIT 36.6 % (33.0-47.0); HEMOGLOBIN 12.3 g/dL (12.0-16.0); IMMATURE GRAN ABSOLUTE AUTO 0.01 x10^3/uL (0.00-0.07); LYMPHOCYTES ABSOLUTE AUTO 1.6 x10^3/uL (1.0-4.8); LYMPHOCYTES PERCENT AUTO 22.6 % (25.0-50.0); MEAN CORPUSCULAR HEMOGLOBIN 29.7 pg (26.0-32.0); MEAN CORPUSCULAR HGB CONC 33.6 g/dL (32.0-36.0); MEAN CORPUSCULAR VOLUME 88.4 fL (78.0-93.0); MONOCYTES ABSOLUTE AUTO 0.7 x10^3/uL (0.0-0.8); MONOCYTES PERCENT AUTO 9.1 % (2.0-11.0); NEUTROPHILS ABSOLUTE AUTO 4.7 x10^3/uL (1.8-7.7); NEUTROPHILS PERCENT AUTO 65.9 % (50.0-80.0); PLATELET COUNT,PLT 254 x10^3/uL (130-400); RED BLOOD CELL COUNT 4.14 x10^6/uL (4.00-5.50); WHITE BLOOD CELL COUNT,WBC 7.1 x10^3/uL (4.0-10.0)
[2024-04-01] MEDS: fentaNYL 50 MCG/ML SDV IVPUSH ONE (10:55)
[2024-04-01 11:08] LABS: A/G RATIO 1.12; ALANINE AMINOTRANSFERASE,ALT 16 U/L (14-59); ALBUMIN 3.8 g/dL (3.4-5.0); ALKALINE PHOSPHATASE 66 U/L (46-116); ASPARTATE AMNIOTRANSFERASE,AST 29 U/L (15-37); BILIRUBIN TOTAL 0.8 mg/dL (0.2-1.0); BLOOD UREA NITROGEN,BUN 21 mg/dL (7-18); CARBON DIOXIDE,CO2 29 mmol/L (21-32); CHLORIDE,CL 102 mmol/L (98-107); EST CRCL DRUG DOSING (CG) 40.21 mL/min; GLUCOSE RANDOM 76 mg/dL (70-99); LACTIC ACID 1.2 mmol/L (0.4-2.0); POTASSIUM,K 4.4 mmol/L (3.5-5.1); PROTEIN TOTAL,TP 7.2 g/dL (6.4-8.2); SODIUM,NA 140 mmol/L (136-145)
[2024-04-01 11:09] LABS: ANION GAP 13.4 mmol/L (5-15); C-REACTIVE PROTEIN < 0.50 mg/dL (<=0.50); ESTIMATED GFR 59 mL/min (>=60)
[2024-04-01 11:25] LABS: APPEARANCE,URINE CLEAR (CLEAR); BILIRUBIN,URINE NEGATIVE (NEGATIVE); COLOR,URINE LIGHT YELLOW (YELLOW); GLUCOSE,URINE NEGATIVE (NEGATIVE); KETONES,URINE NEGATIVE (NEGATIVE); LEUKOCYTE ESTERASE,URINE NEGATIVE (NEGATIVE); NITRITE,URINE NEGATIVE (NEGATIVE); OCCULT BLOOD,URINE SMALL (NEGATIVE); PROTEIN,URINE NEGATIVE (NEGATIVE); UROBILINOGEN,URINE 0.2 EU/dL (0.2)
[2024-04-01 11:33] LABS: BACTERIA,URINE NOT SEEN /HPF (NOT SEEN); MUCUS,URINE NOT SEEN /LPF (NOT SEEN); RBC,URINE 0-5 /HPF (NOT SEEN); SQUAMOUS EPITHELIAL CELLS,UR RARE /HPF (NOT SEEN); WBC,URINE NOT SEEN /HPF (NOT SEEN)
[2024-04-01] MEDS: Albuterol/Ipratropium 3.0-0.5 MG/3 ML Neb Soln NEB ONE (11:43)
[2024-04-01] MEDS: Ketorolac 30 MG/ML SDV IVPUSH ONE (12:07)
[2024-04-01] MEDS: Take Home: Albuterol 18 GM Inhaler, 1 Inhaler Pack INH PRN (12:55)
[2024-04-01] MEDS: Dexamethasone 4 MG/ML SDV IVPUSH ONE (12:56)
== END 2024-04-01 13:00 | disposition home or self-care (01) ==
LOC: VM.ED 10:24
DX: J40 Bronchitis, not specified as acute or chronic (principal); I10 Essential (primary) hypertension; Z86.16 Personal history of COVID-19; Z90.49 Acquired absence of other specified parts of digestive tract; Z90.710 Acquired absence of both cervix and uterus; Z79.82 Long term (current) use of aspirin; Z79.899 Other long term (current) drug therapy; Z88.1 Allergy status to other antibiotic agents; Z88.5 Allergy status to narcotic agent; Z88.8 Allergy status to other drugs, medicaments and biological substances
CPT/HCPCS: 71045; 80053; 81001; 83605; 84484; 85025; 85379; 86140; 87428-QW; 93010; 94640; 96374; 96375; 99284; 99285-25; A9270-GY; J1100; J1885; J3010; J7620-GY